=== PATIENT | female | born 1970 | race Hispanic/Latino ===

== ENCOUNTER 2018-03-18 11:57 | Emergency (ER) | payer BC ==
[~2018-03-18] VITALS: Ht 162.6 cm; Wt 62.7 kg
[2018-03-18 12:18] LABS: BASOPHIL (%) 0.5 % (0-1); BASOPHIL COUNT 0.1 K/uL (0-0.1); EOSINOPHIL (%) 0.1 % (0-5); HEMATOCRIT 39.9 % (36.0-46.0); HEMOGLOBIN 13.7 G/DL (11.9-15.5); IMMATURE GRANULOCYTE (%) 0.4 % (0.0-0.7); LYMPHOCYTE (%) 6.9 % (15-42); LYMPHOCYTE COUNT 0.9 K/uL (1.0-2.8); MCH 33.7 PG (29.0-34.0); MCHC 34.3 G/DL (30.0-36.0); MONOCYTE (%) 2.7 % (3-12); MONOCYTE COUNT 0.3 K/uL (0-0.8); NEUTROPHIL (%) 89.4 % (45-76); NEUTROPHIL COUNT 10.9 K/uL (1.8-6.4); PLATELET COUNT 213 K/uL (156-360); RBC DIS.WIDTH-CV 12.6 % (11.8-14.6); RBC DIS.WIDTH-SD 45.4 % (39-53); RED BLOOD COUNT 4.07 M/uL (3.80-5.20); WHITE BLOOD COUNT 12.2 K/uL (4.1-10.2)
[2018-03-18 12:25] LABS: CHLORIDE 107 mEq/L (99-109); POTASSIUM 3.9 mEq/L (3.7-5.4); SODIUM 138 mEq/L (136-147)
[2018-03-18 12:26] LABS: INTER. NORMALIZED RATIO 1.1
[2018-03-18 12:27] LABS: GLUCOSE 101 mg/dL (70-99)
[2018-03-18 12:28] LABS: PTT 28.7 SEC (25-37)
[2018-03-18 12:31] LABS: CREATININE 0.8 mg/dL (0.6-1.3)
[2018-03-18 12:32] LABS: UREA NITROGEN (BUN) 11 mg/dL (9-23)
[2018-03-18 12:39] LABS: TROP-I INTERPRETATION NEGATIVE; TROPONIN-I 0.01 ng/mL (0.0-0.30)
[2018-03-18 12:45] LABS: GFR ESTIMATE (CALCULATED) > 59 mL/min/
[2018-03-18 14:31] LABS: TROP-I INTERPRETATION NEGATIVE; TROPONIN-I < 0.01 ng/mL (0.0-0.30)
[2018-03-18] MEDS ORDERED: MOTRIN800 MG PO (14:38)
[2018-03-18 15:12] VITALS: BP 159/96
== END 2018-03-18 15:29 | disposition home or self-care (01) ==
LOC: EME 11:57
PROVIDERS: Emergency Medicine
DX: R07.89 Other chest pain (principal); I45.6 Pre-excitation syndrome; I10 Essential (primary) hypertension; J45.909 Unspecified asthma, uncomplicated
CPT/HCPCS: 71045; 80048; 84484; 85025; 85610; 85730; 93005; 99281; 99285; J1885